=== PATIENT | female | born 1960 | race Caucasian/White ===

== ENCOUNTER 2019-04-21 06:06 | Day surgery (SDC) | payer OTHER ==
[2019-04-21] MEDS ORDERED: FENTAnyl 50 MCG/ML VIAL (08:59)
[2019-04-21] MEDS ORDERED: MIDAZOLAM 1 MG/ML 2 ML INJ (08:59)
[2019-04-21] MEDS ORDERED: ATROPINE 1 MG/10 ML SYRINGE (12:43)
== END 2019-04-21 10:28 | disposition home or self-care (01) ==
LOC: GIL 06:06
DX: Z12.11 Encounter for screening for malignant neoplasm of colon (principal); K64.8 Other hemorrhoids; D12.3 Benign neoplasm of transverse colon; K44.9 Diaphragmatic hernia without obstruction or gangrene; K21.9 Gastro-esophageal reflux disease without esophagitis
CPT/HCPCS: 43239; 88305